=== PATIENT | female | born 1950 | race Caucasian/White ===

== ENCOUNTER 2016-07-09 17:45 | Emergency (ER) | payer OTHER ==
--- NOTE | 2016-07-09 18:59 | ED ---
General Adult HPI - General Chief complaint: Wound/Laceration Stated complaint: Laceration, [facility] Time Seen by Provider: 07/09/16 18:02 Source: patient, RN notes reviewed Mode of arrival: wheelchair Limitations: no limitations - History of Present Illness Initial comments: Patient 66-year-old female who presents emergency room today with a chief complaint of laceration to her forehead that occurred just prior to arrival. She does admit that she was leaving work when she hit her head on a cabinet causing this laceration. She states her tetanus is up-to-date. Patient denies any recent fever, chills, shortness of breath, chest pain, back pain, abdominal pain, nausea or vomiting, numbness or tingling, dysuria or hematuria, constipation or diarrhea, headaches or visual changes, or any other complaints. - Related Data Allergies Allergy/AdvReac Type Severity Reaction Status Date / Time codeine Allergy Unknown Verified 07/09/16 17:58 morphine Allergy Itching Verified 07/09/16 17:58 Review of Systems ROS Statement: Those systems with pertinent positive or pertinent negative responses have been documented in the HPI. ROS Other: All systems not noted in ROS Statement are negative. Past Medical History Past Medical History: Hyperlipidemia, Hypertension History of Any Multi-Drug Resistant Organisms: None Reported Past Surgical History: Hysterectomy Past Psychological History: No Psychological Hx Reported Smoking Status: Current every day smoker Past Alcohol Use History: None Reported Past Drug Use History: None Reported General Exam - General Exam Comments Initial Comments: General: The patient is awake and alert, in no distress, and does not appear acutely ill. Eye: Pupils are equal, round and reactive to light, extra-ocular movements are intact. No nystagmus. There is normal conjunctiva bilaterally. No signs of icterus. Ears, nose, mouth and throat: There are moist mucous membranes and no oral lesions. Neck: The neck is supple, there is no tenderness or JVD. Cardiovascular: There is a regular rate and rhythm. No murmur, rub or gallop is appreciated. Respiratory: Lungs are clear to auscultation, respirations are non-labored, breath sounds are equal. No wheezes, stridor, rales, or rhonchi. Musculoskeletal: Normal ROM, no tenderness. Strength 5/5. Sensation intact. Pulses equal bilaterally 2+. Neurological: A&O x 3. CN II-XII intact, There are no obvious motor or sensory deficits. Coordination appears grossly intact. Speech is normal. Skin: laceration running vertically to the middle of her forehead measuring approximately 3 cm. Psychiatric: Cooperative, appropriate mood & affect, normal judgment. Limitations: no limitations Course Vital Signs 07/09/16 17:56 Temperature 97.5 F L Pulse Rate 92 Respiratory 20 Rate Blood Pressure 169/86 O2 Sat by Pulse 98 Oximetry Procedures - Procedures Initial comment: 3 cm linear laceration running to the middle of the forehead running vertically. No active bleeding. The skin was anesthetized with 1% lidocaine. The laceration was then cleansed with and irrigated with normal saline. The wound was inspected, and there was no evidence of injury to deep structures. No foreign body was noted in the wound. A total of 14 skin sutures were placed utilizing 6-0 nylon. Disposition Clinical Impression: Laceration Disposition: HOME SELF-CARE Condition: Good Instructions: Laceration (ED) Additional Instructions: Please return to the emergency room in 5 daysto have sutures removed. Please watch for any signs of infection which may include increased pain, swelling, redness, fever or chills. Please return to emergency room for any signs of infection do occur. Please use clean soap and water over the area to prevent scabbing over your stitches. Please leave wound covered for the first 24 hours and then leave wound open to air. Please return to the emergency room for any other concerns. Time of Disposition: 18:58
[2016-07-09 19:15] VITALS: BP 147/72; PULSE 70; RESP 16; TEMP 97.8
== END 2016-07-09 19:10 | disposition home or self-care (01) ==
LOC: EC 17:45
DX: S01.81XA Laceration without foreign body of other part of head, initial encounter (principal); F17.200 Nicotine dependence, unspecified, uncomplicated; Z88.5 Allergy status to narcotic agent; W22.8XXA Striking against or struck by other objects, initial encounter; Y92.69 Other specified industrial and construction area as the place of occurrence of the external cause; Y99.0 Civilian activity done for income or pay
CPT/HCPCS: 12013; 99282

== ENCOUNTER 2016-07-14 12:25 | Emergency (ER) | payer OTHER ==
[2016-07-14 13:03] VITALS: PULSE 76; RESP 16
--- NOTE | 2016-07-14 13:35 | ED ---
General Adult HPI - General Chief complaint: Recheck/Abnormal Lab/Rx Stated complaint: Neck/Head Pain Time Seen by Provider: 07/14/16 13:17 Source: patient, RN notes reviewed Mode of arrival: ambulatory Limitations: no limitations - History of Present Illness Initial comments: 56-year-old female presented emergency department for suture removal, head pain. Patient states that she had an injury 5 days ago had sutures placed. She states that she looked up and hit her head on a cabinet door. Patient states her son she's had increasing pain. Denies any nausea, vomiting, blurred vision, focal weakness, dizziness, chest pain or shortness of breath. She states she took ibuprofen once did have some relief but states she has not taken any other medications for this pain. Patient denies any fever or chills. She denies any drainage, fever or chills. - Related Data Home Medications Medication Instructions Recorded Confirmed Unable To Assess [Unable to Assess] 07/14/16 07/14/16 Allergies Allergy/AdvReac Type Severity Reaction Status Date / Time codeine Allergy Unknown Verified 07/14/16 13:03 morphine Allergy Itching Verified 07/14/16 13:03 Review of Systems ROS Statement: Those systems with pertinent positive or pertinent negative responses have been documented in the HPI. ROS Other: All systems not noted in ROS Statement are negative. Past Medical History Past Medical History: Hyperlipidemia, Hypertension History of Any Multi-Drug Resistant Organisms: None Reported Past Surgical History: Hysterectomy Past Psychological History: No Psychological Hx Reported Smoking Status: Current every day smoker Past Alcohol Use History: None Reported Past Drug Use History: None Reported General Exam Limitations: no limitations General appearance: alert, in no apparent distress Head exam: Present: atraumatic, normocephalic, other (Ecchymosis noted of the forehead, periorbital region). Absent: normal inspection (Sutures in forehead laceration well-healed no erythema) Eye exam: Present: normal appearance, PERRL, EOMI. Absent: scleral icterus, conjunctival injection, periorbital swelling, periorbital tenderness ENT exam: Present: normal exam, normal oropharynx, mucous membranes moist, TM's normal bilaterally, normal external ear exam Neck exam: Present: normal inspection, full ROM. Absent: tenderness, meningismus, lymphadenopathy Respiratory exam: Present: normal lung sounds bilaterally. Absent: respiratory distress, wheezes, rales, rhonchi, stridor Cardiovascular Exam: Present: regular rate, normal rhythm, normal heart sounds. Absent: systolic murmur, diastolic murmur, rubs, gallop, clicks Neurological exam: Present: alert, oriented X3, CN II-XII intact, reflexes normal. Absent: motor sensory deficit Course Vital Signs 07/14/16 13:00 Temperature 98.1 F Pulse Rate 76 Respiratory 16 Rate Blood Pressure 148/76 O2 Sat by Pulse 100 Oximetry Medical Decision Making - Medical Decision Making 66-year-old female presented for suture removal, head injury. Patient CT shows no acute abnormality. Patient will be discharged time sutures were removed. Disposition Clinical Impression: Head injury, Encounter for removal of sutures Disposition: TRANSFER TO PSYCH HOSP/UNIT Condition: Stable Instructions: Head Injury (ED) Additional Instructions: Please return to the Emergency Department if symptoms worsen or any other concerns. Referrals: Chauncey Walker MD [Primary Care Provider] - 1-2 days Time of Disposition: 14:17
--- NOTE | 2016-07-14 14:06 | CT ---
EXAMINATION TYPE: CT brain wo con DATE OF EXAM: 07/14/2016 1:59 PM COMPARISON: NONE HISTORY: Headache CT DLP: 1054.2 mGycm Automated exposure control for dose reduction was used. FINDINGS: There is no acute intracranial hemorrhage, mass effect, or midline shift identified. The ventricles and sulci are within normal limits in size. The globes are intact and the visualized sinuses are mauricio ar. IMPRESSION: No acute intracranial hemorrhage, mass effect, or midline shift is seen.
[2016-07-14 14:28] VITALS: BP 128/78; TEMP 97.2
== END 2016-07-14 14:29 ==
LOC: EC 12:25
DX: S01.81XD Laceration without foreign body of other part of head, subsequent encounter (principal); M54.2 Cervicalgia; Z48.02 Encounter for removal of sutures; F17.200 Nicotine dependence, unspecified, uncomplicated; Z88.5 Allergy status to narcotic agent; X58.XXXD Exposure to other specified factors, subsequent encounter
CPT/HCPCS: 70450; 99284